=== PATIENT | male | born 2000 | race Caucasian/White ===

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

== ENCOUNTER 2025-08-06 12:12 | Emergency (ER) | payer OTHER, SELFPAY ==
[2025-08-06 12:17] VITALS: BP 134/82; PULSE 66; RESP 18; TEMP 36.4; O2SAT 99
--- NOTE | 2025-08-06 12:21 | ED_ITS ---
HPI - Skin/Abscess/Foreign Bdy General Chief complaint: Skin/Abscess/Foreign Body Stated complaint: Rash Time Seen by Provider: 08/06/25 12:22 Source: patient Mode of arrival: ambulatory Limitations: no limitations History of Present Illness HPI narrative: 25 yo M presents with c/o itchy rash for 1 wk. Concerned that he has poison genie. Applying calamine without relief. all systems reviewed and negative except as noted above. Related Data Allergies Allergy/AdvReac Type Severity Reaction Status Date / Time No Known Allergies Allergy Unknown Verified 08/06/25 12:14 PMFSH Comments At time of signature, agree with nursing past medical, surgical, social and family history. There is no relevant family history pertinent to the presenting complaint. Exam Narrative: GENERAL: This is a well-nourished, well-developed patient, in no apparent distress. HEAD: normocephalic, atraumatic. EYES: PERRL. Sclera clear/white. Vision is grossly intact. EARS: External ears normal NOSE: External nose normal NECK: Neck supple, non-tender without lymphadenopathy, masses or thyromegaly. CARDIOVASCULAR: Regular rate and rhythm without murmurs, gallops, or rubs. RESPIRATORY: Clear to auscultation. Breath sounds equal bilaterally. No wheezes, rales, or rhonchi. SKIN: warm, Dry, intact with erythematous, scabbed vesicular lesions, some linear in appearing, to bilateral forearms, forehead, R hip and bilateral legs. good texture and turgor. NEURO: awake, alert, and oriented to person, place and time. There were no obvious focal neurologic abnormalities. EXTREMITIES: No joint tenderness, effusion, or edema noted. Course Course Level of Care: Express Care Visit Vital Signs Vital signs: Vital Signs Temperature 36.4 C 08/06/25 12:17 Pulse Rate 66 08/06/25 12:17 Respiratory Rate 18 08/06/25 12:17 Blood Pressure 134/82 08/06/25 12:17 Pulse Oximetry 99 08/06/25 12:17 Oxygen Delivery Room Air 08/06/25 12:17 Temperature 36.4 C 08/06/25 12:17 Pulse Rate 66 08/06/25 12:17 Respiratory Rate 18 08/06/25 12:17 Blood Pressure 134/82 08/06/25 12:17 Pulse Oximetry 99 08/06/25 12:17 Oxygen Delivery Room Air 08/06/25 12:17 Reviewed MDM - Skin/Abscess/Foreign Bdy MDM Narrative Medical decision making narrative: will treat poison genie rash with triamcinolone, prednisone taper dose. Differential Diagnosis Differential diagnosis: Likely eczema, insect bites and contact dermatitis Discharge Plan Discharge Clinical Impression: Dermatitis due to plants, including poison genie, sumac, and oak Patient Disposition: Home Condition: Stable Instructions: Poison Genie (ED) Additional Instructions: Take medications as prescribed. Hydroxyzine may cause drowsiness. Do not drive while taking it. Follow-up with primary care physician as needed. Patient Language: Panamanian Prescriptions: New prednisone 10 mg tablet See Rx Instructions .ROUTE .COMPLEX Qty: 42 0RF Rx Instructions: Take 6 tablets for 2 days Take 5 tablets for 2 days Take 4 tablets for 2 days Take 3 tablets for 2 days Take 2 tablets for 2 days Take 1 tablet for 2 days hydroxyzine HCl 10 mg tablet 10 mg PO Q6-8H PRN (Reason: itching) Qty: 30 0RF triamcinolone acetonide 0.1 % cream 1 applic topical BID Qty: 30 0RF Follow-up/Referrals: PHYSICIAN,FORESTRY EXTENSION SPECIALIST [Primary Care Provider, Internal Medicine] Time of Disposition: 12:28
--- OUTSIDE RECORDS SUMMARY | 2025-08-06 12:33 | XMS_ITS | Clinical Summary ---
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 Bankart lesion, right, subsequent encounter 10/13 Overview (10/28/2020): Added automatically from request for surgery [id number] Tear of right glenoid labrum 10/27/2020 Bankart lesion of right shoulder 10/27/2020 Superior glenoid labrum lesion of right shoulder 10/27/2020 Anterior dislocation of right shoulder 0 Pain of hand 10/11/2017 Surgical History Surgery Date Site/Laterality Comments TYMPANOSTOMY TUBE PLACEMENT 2002 - 11/12/2003 SHOULDER SURGERY Family History Medical History Relation Name Comments Hypertension Father Anesthesia problems Neg Hx Relation Name Status Comments Father Social History Tobacco Use Types Packs/Day Years Used Date Smoking Tobacco: Never Smokeless Tobacco: Never Alcohol Use Standard Drinks/Week Comments Never 0 (1 standard drink = 0.6 oz pur e alcohol) AUDIT-C Answer Date Recorded Q1: How often do you have a drink containing alc ohol? Never 11/09/2020 Average Number of Drinks Not on file 020 Frequency of Binge Drinking Not on file 10/14 Personal Safety Answer Date Recorded Have you ever been in or are you currently in a harmful physical or emotional relationship or is someone making you feel afraid or unsafe? 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 Gender Identity Not on file Sexual Orientation Not on file Obstetrics History Last Filed Vital Signs Vital Sign Reading Time Taken Comments Blood Pressure 126/77 07/18/2024 3:59 PM CDT Pulse 73 07/18/2024 3:59 PM CDT Temperature 37.4 C (99.3 F) 07/18/2024 3:59 PM CDT Respiratory Rate 16 07/18/2024 3:59 PM CDT Oxygen Saturation 100% 07/18/2024 3:59 PM CDT Inhaled Oxygen Concentration - - Weight 72.6 kg (160 lb) 07/18/2024 3:59 PM CDT Height 190.5 cm (6' 3) 07/18/2024 3:59 PM CDT Body Mass Index 20 07/18/2024 3:59 PM CDT Plan of Treatment Health Maintenance Due Date Last Done Comments Depression Screening 2002 Hepatitis C Screening 2002 HPV Vaccines (1 - Male 3-dos e series) 2017 Regular Well Visit/Exam 18-64 2020 Meningococcal B Vaccine (2 o f 2 - Trumenba SCDM 2-dose series) 12/17/2020 06/16/2020 DTaP/Tdap/Td Vaccine (7 - Td or Tdap) 2024 2014, 04/08/2008, 05/19/2004, Additional history exists Influenza Vaccine (#1) 2025 08/11/2016, 2010 Pneumococcal vaccine <65 Completed 003, 2002, 2002, Additional history exists Hepatitis B Screening Completed 06/02/2004 , 2002, 2002 Varicella Vaccines Completed 04/08/2008, 07/04/2003 Medical Devices Implanted Type Area Electrical Contractor Device Identifier Shelf Expiration Date Model / Serial / Lot [employer] Ar-1934bcf Suturetak Fiberwire 3mm 14.5mm 2 [employer] - [id number] Implanted:Qty: 1 on 11/11/2020 by Brice Song IV, MD at [facility] Right: Shoulder [employer] 06/12/2024 AR-1934BCF / / [id number] [employer] Ar-1934bcf Suturetak Fiberwire 3mm 14.5mm 2 [employer] - [id number] Implanted:Qty: 1 on 11/11/2020 by Brice Song IV, MD at [facility] Right: Shoulder [employer] 06/12/2024 AR-1934BCF / / [id number] [employer] Ar-1934bcf Suturetak Fiberwire 3mm 14.5mm 2 [employer] - [id number] Implanted:Qty: 1 on 11/11/2020 by Brice Song IV, MD at [facility] Right: Shoulder [employer] 06/12/2024 AR-1934BCF / / [id number] [employer] Ar-1934bcf Suturetak Fiberwire 3mm 14.5mm 2 [employer] - [id number] Implanted:Qty: 1 on 11/11/2020 by Brice Song IV, MD at [facility] Right: Shoulder [employer] 06/12/2024 AR-1934BCF / / [id number] [employer] Ar-1934bcf Suturetak Fiberwire 3mm 14.5mm 2 [employer] - [id number] Implanted:Qty: 1 on 11/11/2020 by Brice Song IV, MD at [facility] Right: Shoulder [employer] 06/12/2024 AR-1934BCF / / [id number] [employer] Ar-1934bcf Suturetak Fiberwire 3mm 14.5mm 2 [employer] - [id number] Implanted:Qty: 1 on 11/11/2020 by Brice Song IV, MD at [facility] Right: Shoulder [employer] 06/12/2024 AR-1934BCF / / [id number] [employer] Ar-1934bcf Suturetak Fiberwire 3mm 14.5mm 2 [employer] - [id number] Implanted:Qty: 1 on 11/11/2020 by Brice Song IV, MD at [facility] Right: Shoulder [employer] 06/12/2024 AR-1934BCF / / [id number] [employer] Ar-1934bcf Suturetak Fiberwire 3mm 14.5mm 2 [employer] - [id number] Implanted:Qty: 1 on 11/11/2020 by Brice Song IV, MD at [facility] Right: Shoulder [employer] 06/12/2024 AR-1934BCF / / [id number] Insurance [facility]PPO Address: [facility] [id number] [place] [id number] [facility] WORK[employer] COMPENSATION GENERIC Advance Directives For more information, please contact: [phone] * Full Code (Latest Code Status on File) Date Activated Date Inactivated Comments 11/11/2020 3:48 PM 11/11/2020 9:03 PM Care Teams Atomic Physics Professor Relationship Specialty Start Date End Date No, Physician PCP - General 10/22/20
== END 2025-08-06 12:34 | disposition home or self-care (01) ==
PROVIDERS: Emergency Provider Nurse Practitioner Family
DX: L23.7 Allergic contact dermatitis due to plants, except food (principal)
CPT/HCPCS: 99213; G0463